=== PATIENT | male | born 1995 | race Caucasian/White ===

== ENCOUNTER 2020-01-08 14:02 | Emergency (ER) | payer OTHER ==
[~2020-01-08] VITALS: Ht 182.9 cm; Wt 90.7 kg
[2020-01-08 14:35] LABS: INFLUENZA A ANTIGEN Negative (Negative); INFLUENZA B ANTIGEN Negative (Negative)
[2020-01-08] MEDS ORDERED: ZPAK PO (14:48)
[2020-01-08] MEDS ORDERED: PREDNISONE 20 M20 MG PO (14:48)
[2020-01-08 14:58] VITALS: BP 140/75
== END 2020-01-08 14:58 | disposition home or self-care (01) ==
LOC: M.ERS 14:02
PROVIDERS: Nurse Practitioner Family
DX: U07.1 COVID-19 (principal)